=== PATIENT | male | born 1965 | race Caucasian/White ===

== ENCOUNTER 2021-11-12 02:51 | Inpatient (IN) | payer MEDICAID ==
[~2021-11-12] VITALS: Ht 180.3 cm; Wt 77.1 kg
[2021-11-12 03:30] LABS: BASOPHILS # (AUTO) 0.1 X10'3 (0-0.2); BASOPHILS % (AUTO) 0.4 % (0-1); EOSINOPHILS # (AUTO) 0.4 X10'3 (0-0.9); HEMATOCRIT 28.4 % (42.0-52.0); LYMPHOCYTES # (AUTO) 2.8 X10'3 (1.1-4.8); MEAN CORPUSCULAR HEMOGLOBIN 23.9 PG (27.0-31.0); MEAN CORPUSCULAR HGB CONC 31.6 g/dL (33.0-36.5); MEAN CORPUSCULAR VOLUME 75.7 FL (78-98); MEAN PLATELET VOLUME 8.4 FL (7.4-10.4); MONOCYTES % (AUTO) 5.3 % (2-12); NEUTROPHILS # (AUTO) 14.3 X10'3 (1.8-7.7); NEUTROPHILS % (AUTO) 77.3 % (42-75); PLATELET COUNT 423 X10'3 (140-440); RED BLOOD COUNT 3.75 X10'6 (4.70-6.10); RED CELL DISTRIBUTION WIDTH 22.4 % (11.5-14.5); WHITE BLOOD COUNT 18.6 X10'3 (4.5-11.0)
[2021-11-12 03:37] LABS: APTT 25 SECONDS (22-32)
[2021-11-12 03:38] LABS: ALANINE AMINOTRANSFERASE 32 U/L (12-78); ALBUMIN 2.5 G/DL (3.4-5.0); ALBUMIN/GLOBULIN RATIO 0.5 (1.1-1.5); ALKALINE PHOSPHATASE 292 IU/L (46-116); ANION GAP 8 (8-16); ASPARTATE AMINO TRANSFERASE 31 U/L (10-37); BILIRUBIN,TOTAL 0.2 MG/DL (0.1-1.0); BLOOD UREA NITROGEN 25 MG/DL (7-18); BUN/CREATININE RATIO 20.8 (5.4-32.0); CALCIUM 8.6 MG/DL (8.5-10.1); CHLORIDE 100 MMOL/L (99-107); GLUCOSE 182 MG/DL (70-104); SODIUM 138 MMOL/L (135-145); TOTAL CARBON DIOXIDE 30.3 MMOL/L (24-32); eGFR 63 ML/MIN
[2021-11-12] MEDS ORDERED: cefepime 1GM in D5W 50mL 50 ML IV ONE (04:05)
[2021-11-12] MEDS ORDERED: normal saline 1000ml 1,000 ML IV ONE (04:05)
[2021-11-12] MEDS ORDERED: vancomycin/NS 1 GM ADD-VANTAGE 250 ML IV ONE (04:05)
[2021-11-12] MEDS ORDERED: cefepime 1GM/NS ADD-VANTAGE 100 ML IV ONE (04:05)
[2021-11-12] MEDS ORDERED: iohexol 350MG/ML 100ml bottle IV ONE (04:10)
[2021-11-12] MEDS ORDERED: potassium CL 10mEq/100ml bag 100 ML IV PRN (04:50)
[2021-11-12] MEDS ORDERED: magnesium hydroxide 30ml (MOM) UD suspension PO PRN (04:50)
[2021-11-12] MEDS ORDERED: potassium Cl 20 mEq SR tablet PO PRN ×2 (04:50)
[2021-11-12] MEDS ORDERED: HYDROcodone/acetaminophen 5mg/325mg tablet PO PRN (04:50)
[2021-11-12] MEDS ORDERED: ipratropium/albuterol 3ml nebule NEB PRN (04:50)
[2021-11-12] MEDS ORDERED: MESSAGE TO PHARMACY PO ONE (04:50)
[2021-11-12] MEDS ORDERED: magnesium 4gm in 100ml NS 100 ML IV PRN (04:50)
[2021-11-12] MEDS ORDERED: DEXTROSE 15 GM of carb/4 tabs (each vial/BOTTLE has 4 tablets) PO PRN ×2 (04:50)
[2021-11-12] MEDS ORDERED: mag hydrox/Alum hydrox/simeth 30ml oral suspension PO PRN (04:50)
[2021-11-12] MEDS ORDERED: dextrose 50%-water 50ml dispensing syringe IV PRN ×2 (04:50)
[2021-11-12] MEDS ORDERED: albuterol 2.5 MG/3 ML nebule NEB PRN ×2 (04:50→05:05)
[2021-11-12] MEDS ORDERED: insulin Lispro (HumaLOG) vial - multi-dose SQ SCH (04:50)
[2021-11-12] MEDS ORDERED: ondansetron/PF 4mg/2ml inj IV PRN (04:50)
[2021-11-12] MEDS ORDERED: acetaminophen 325mg tablet PO PRN ×2 (04:50)
[2021-11-12] MEDS ORDERED: magnesium 2GM in 50ml NS 50 ML IV PRN (04:50)
[2021-11-12] MEDS ORDERED: glucagon, human recombinant 1mg kit SUBCUT PRN (04:50)
[2021-11-12] MEDS ORDERED: HYDROcodone/acetaminophen 10/325mg tab PO PRN (04:50)
[2021-11-12 04:57] LABS: ANISOCYTOSIS 3+; MICROCYTOSIS 1+; PLATELET ESTIMATE NORMAL
[2021-11-12 04:58] LABS: LARGE PLATELETS FEW
[2021-11-12] MEDS: normal saline 1000ml 1,000 ML IV SCH ×2 (05:06→17:00)
[2021-11-12 05:37] LABS: D-DIMER 1.45 MG/L FEU (0-0.50)
[2021-11-12] MEDS ORDERED: INSU100V9 SQ (06:14)
[2021-11-12] MEDS ORDERED: ENOX40SY7 SUBCUT (06:14)
[2021-11-12] MEDS ORDERED: LISI10TA27 PO (06:14)
[2021-11-12] MEDS ORDERED: POLY17PO59 PO (06:14)
[2021-11-12] MEDS ORDERED: FLO0.4C PO (06:14)
[2021-11-12] MEDS ORDERED: METO-384 PO (06:14)
[2021-11-12] MEDS ORDERED: LORA-269 PO (06:14)
[2021-11-12] MEDS ORDERED: AMLO10TA PO (06:14)
[2021-11-12] MEDS ORDERED: GABA-534 PO (06:14)
[2021-11-12] MEDS ORDERED: INSU100C10 SQ (06:14)
[2021-11-12] MEDS: piperacillin/tazo 4.5gm/100ml 100 ML IV SCH ×2 (07:19→16:59)
[2021-11-12] MEDS: ipratropium/albuterol 3ml nebule NEB SCH ×5 (07:28→23:00)
[2021-11-12] MEDS: K and/or MAG REPLACEMENT MC SCH ×2 (07:54→19:59)
[2021-11-12] MEDS: docusate sod 100mg capsule PO SCH ×2 (07:54→20:00)
[2021-11-12] MEDS ORDERED: LORazepam 1 MG tablet PO PRN (09:00)
[2021-11-12] MEDS ORDERED: polyethylene glycol 3350 17gm powd pack PO PRN (09:20)
--- NOTE | 2021-11-12 10:46 | NUR ---
pt bld suagr this am was 165 after eating his breakfast .The previous bld sugar was 180 tawana he will meet the criteria if 2 consective bld sugar is above 160 .but pt ate his breakfast prior to accucheck .will inform the nurse in [facility] who will be taking report.
--- NOTE | 2021-11-12 11:02 | NUR ---
ty RN spoke to staff up in [facility] and informed that pt is going to different room.
--- NOTE | 2021-11-12 11:33 | NUR ---
YOLETTE THE ADMISSION REPORT BELONGING TO KAYLA MASTERS ALSO INFORMED THAT PT BLD SUGAR NOT CORRECTED HE ATE FOOD BEFORE CHECKING THE BLD SUGAR.
--- NOTE | 2021-11-12 11:50 | NUR ---
pt. refused 1100 svn. no sob observed. pt. being transfered to floor
[2021-11-12] MEDS: azithromycin 250mg tablet PO SCH (12:35)
[2021-11-12 14:00] VITALS: BP 153/87
[2021-11-12 15:00] VITALS: BP 128/82
[2021-11-12 18:00] VITALS: BP 160/98
[2021-11-12] MEDS ORDERED: enoxaparin 40mg/0.4ml syringe SQ SCH (20:00)
[2021-11-12] MEDS ORDERED: HYDROmorphone inj. 0.5 MG/0.5 ML DISP.SYRIN IV PRN (21:00)
[2021-11-12] MEDS ORDERED: insulin glargine (Lantus) pen - multi-dose SQ SCH (21:00)
[2021-11-12 22:00] VITALS: BP 132/82
[2021-11-13] MEDS: piperacillin/tazo 4.5gm/100ml 100 ML IV SCH ×2 (01:28→08:57)
[2021-11-13] MEDS: normal saline 1000ml 1,000 ML IV SCH (01:28)
[2021-11-13] MEDS: ipratropium/albuterol 3ml nebule NEB SCH ×3 (03:00→11:00)
[2021-11-13 06:00] VITALS: BP 169/95
[2021-11-13 06:11] LABS: ALANINE AMINOTRANSFERASE 29 U/L (12-78); ALBUMIN 2.2 G/DL (3.4-5.0); ALBUMIN/GLOBULIN RATIO 0.4 (1.1-1.5); ALKALINE PHOSPHATASE 260 IU/L (46-116); ANION GAP 7 (8-16); ASPARTATE AMINO TRANSFERASE 25 U/L (10-37); BILIRUBIN,TOTAL 0.2 MG/DL (0.1-1.0); BLOOD UREA NITROGEN 17 MG/DL (7-18); BUN/CREATININE RATIO 23.9 (5.4-32.0); CALCIUM 8.3 MG/DL (8.5-10.1); CHLORIDE 103 MMOL/L (99-107); CREATININE 0.71 MG/DL (0.60-1.10); GLUCOSE 133 MG/DL (70-104); MAGNESIUM 1.8 MG/DL (1.5-2.4); POTASSIUM 3.7 MMOL/L (3.5-5.1); SODIUM 140 MMOL/L (135-145); TOTAL CARBON DIOXIDE 30.2 MMOL/L (24-32); TOTAL PROTEIN 7.5 G/DL (6.4-8.2); eGFR > 90 ML/MIN
[2021-11-13 06:17] LABS: BASOPHILS # (AUTO) 0.1 X10'3 (0-0.2); BASOPHILS % (AUTO) 0.3 % (0-1); EOSINOPHILS # (AUTO) 0.3 X10'3 (0-0.9); EOSINOPHILS % (AUTO) 1.9 % (0-6); HEMATOCRIT 27.8 % (42.0-52.0); HEMOGLOBIN 8.6 g/dl (14.0-17.9); LYMPHOCYTES # (AUTO) 2.4 X10'3 (1.1-4.8); LYMPHOCYTES % (AUTO) 13.4 % (21-51); MEAN CORPUSCULAR HEMOGLOBIN 23.3 PG (27.0-31.0); MEAN CORPUSCULAR HGB CONC 30.9 g/dL (33.0-36.5); MEAN CORPUSCULAR VOLUME 75.3 FL (78-98); MONOCYTES # (AUTO) 1.2 X10'3 (0-0.9); NEUTROPHILS # (AUTO) 13.7 X10'3 (1.8-7.7); NEUTROPHILS % (AUTO) 77.4 % (42-75); PLATELET COUNT 408 X10'3 (140-440); RED BLOOD COUNT 3.69 X10'6 (4.70-6.10); RED CELL DISTRIBUTION WIDTH 22.7 % (11.5-14.5); WHITE BLOOD COUNT 17.7 X10'3 (4.5-11.0)
[2021-11-13] MEDS ORDERED: lisinopril 20mg tablet PO SCH (08:00)
[2021-11-13] MEDS: docusate sod 100mg capsule PO SCH (08:00)
[2021-11-13] MEDS ORDERED: amLODIPine 5mg tablet PO SCH (08:00)
[2021-11-13] MEDS ORDERED: metoprolol succinate 25mg (24-HOUR) SR. Tablet PO SCH (08:00)
[2021-11-13] MEDS ORDERED: gabapentin 400mg capsule PO SCH (08:00)
[2021-11-13] MEDS: K and/or MAG REPLACEMENT MC SCH (08:00)
[2021-11-13] MEDS: azithromycin 250mg tablet PO SCH (08:55)
[2021-11-13 08:56] VITALS: BP_SYST 169
[2021-11-13 14:23] LABS: HEMOGLOBIN A1C 7.7 % (4.5-6.2)
--- NOTE | 2021-11-13 14:43 | NUR ---
Mr. Webster has been assessed as indicated. He has been DC to [facility] report has been called to [facility]. He is being transported by A unit number [id number] personel are Carmen and Gil. All belongings were with him and DC orders were hand written and packaged in folder given to Carmen. At the time of DC Mr Webster was compliant with the plan to DC and had no s/s of distress or discomfort. His IV and Sousa were left in place
== END 2021-11-13 15:45 | DRG 133 ==
LOC: ER 02:53 → ED HOLD 04:57 → UNDOADMIN 04:57 → PCU 3S 11:56 → ED HOLD 11:56
PROVIDERS: ADMIT Family Medicine; ATTEND Family Medicine
PROC: B32T1ZZ Computerized Tomography (CT Scan) of Left Pulmonary Artery using Low Osmolar Contrast (ICD-10-PCS; principal; 2021-11-12)
PROC: B3201ZZ Computerized Tomography (CT Scan) of Thoracic Aorta using Low Osmolar Contrast (ICD-10-PCS; 2021-11-12)
PROC: B32S1ZZ Computerized Tomography (CT Scan) of Right Pulmonary Artery using Low Osmolar Contrast (ICD-10-PCS; 2021-11-12)
DX: J96.01 Acute respiratory failure with hypoxia (principal); J18.9 Pneumonia, unspecified organism; I69.351 Hemiplegia and hemiparesis following cerebral infarction affecting right dominant side; I10 Essential (primary) hypertension; E11.9 Type 2 diabetes mellitus without complications; N28.9 Disorder of kidney and ureter, unspecified; Z20.822 Contact with and (suspected) exposure to COVID-19; N40.0 Benign prostatic hyperplasia without lower urinary tract symptoms; F17.210 Nicotine dependence, cigarettes, uncomplicated; Z79.899 Other long term (current) drug therapy; Z89.022 Acquired absence of left finger(s); Z71.6 Tobacco abuse counseling
CPT/HCPCS: 36415; 71045; 71275; 73120; 80053; 82728; 82948; 83036; 83540; 83550; 83605; 83735; 84145; 84443; 85008; 85025; 85379; 85610; 85651; 85730; 86140; 87040; 87635; 93005; 94640; 94760; 99285; C9803; G0378; J0692; J1170; J1650; J1815; J2543; J3370; J7030; Q9967